=== PATIENT | female | born 1960 | race Asian ===

== ENCOUNTER 2016-12-19 11:08 | Outpatient (CLI) | payer MEDICARE ==
--- NOTE | 2016-12-19 13:18 | Mammography Report ---
Screening mammogram: No recent exams for comparison. Patient unclear as to whether she had breast cancer. The left breast is considerably smaller than the right with surgical changes consistent with probable lumpectomy. Skin thickening consistent with radiation therapy. There is a heterogeneously dense fibroglandular pattern bilaterally with no nodule or suspicious calcifications in either breast. No suspicious areas of architectural distortion. CAD used. Impression: Findings most likely representing prior lumpectomy and radiation therapy. No currently suspicious findings. Recommendation: Annual mammogram followup. BI-RADS CATEGORY: 2 = Benign ACR BI-RADS MAMMOGRAPHIC CODES: 0 = Needs additional imaging evaluation; 1 = Negative; 2 = Benign; 3 = Probably benign; 4 = Suspicious; 5 = Malignant; 6 = Known biopsy-proven malignancy COMMENT: 1. Dense breast tissue, i.e., adenosis, fibrocystic changes, etc., may obscure an underlying neoplasm. 2. Approximately 10% of cancers are not detected with mammography. 3. A negative mammography report should not delay biopsy if a clinically suspicious mass is present.
--- NOTE | 2016-12-19 15:24 | Mammography Report ---
BONE DENSITY STUDY: Postmenopausal osteoporosis. DEFINITIONS: BMD = Bone Mineral Density T-score = BMD related to mean peak bone mass of young adult (mean expressed in Standard Deviation) Z-score = Age matched BMD expressed in SD World Health Organization (WHO) Diagnostic Criteria Normal T-score > -1 SD Osteopenia T-score between -1 and -2.4 SD Osteoporosis T-score -2.5 SD or below FINDINGS: The weighted average BMD of lumbar spine L1-L4 is 0.952 with a T-score of -0.9. Previous 0.952 with a T. value score of -1.3. The weighted average BMD of the left hip is 0.885 with a T-score of -0.5. The BMD of the femoral neck is 0.699 with a T. value score of -1.3. IMPRESSION: The patient's average T-score is diagnostic for normal bone density and low relative risk for fracture. NOTE: BMD is not the only risk factor for fracture; also consider factors such as the patient's age, risk of falling, previous osteoporotic fracture, family history of osteoporotic fractures, current smoker, and low body weight. Robbins's triangle is a region of interest in femur, predominantly of trabecular bone. It is not a true anatomic site, and [facility] does not recommend its use clinically.
== END 2016-12-19 11:09 | disposition home or self-care (01) ==
LOC: EDBD 11:08 → MAMMO 11:08
PROVIDERS: ATTEND Internal Medicine
DX: Z12.31 Encounter for screening mammogram for malignant neoplasm of breast (principal); Z13.820 Encounter for screening for osteoporosis; Z78.0 Asymptomatic menopausal state
CPT/HCPCS: 77080; G0202; 77067